=== PATIENT | female | born 1955 | race Caucasian/White ===

== ENCOUNTER 2020-10-22 14:42 | Inpatient (IN) ==
[2020-10-22] MEDS ORDERED: SODIUM CHLORIDE 0.9% 1000ML 1,000 ML IV ONE ×3 (15:46→20:01)
--- NOTE | 2020-10-22 16:16 | Emergency Department Note ---
Impression & Plan Cellulitis, Acidosis, lactic ED Provider Note NAME: GLEN ALFONSO AGE: 65 SEX: F : 1955 ARRIVES VIA: Walk-In INFORMANT: Patient, the patient significant other ED PROVIDER(S): Onesimo Pierce DO CHIEF COMPLAINT: Weakness HPI: The patient is a 65-year-old female who presented to the emergency department with her significant other for generalized weakness. The patient has a history of MS for many years. She has been on Biologics over the course the last few years. Her last dose was in September of this year. She does follow with her primary neurologist very closely. She is also had problems with trigeminal neuralgia. The patient has been traveling recently and on her most recent return home she started to have worsening symptoms with her MS. Her significant other did start her on a course of steroids which seemed to help over the last a few days but the patient has very significant breakdown especially on her buttocks and has had worsening symptoms of MS. The patient does not have a fever. She denies having any chest pain or difficulty breathing. She denies having any exposure to COVID-19 as far she knows. She notices no new lower extremity swelling. She has had no falls or headaches. The patient did not see her family doctor for the symptoms. ROS: See above HPI for pertinent positives & negatives. A total of 10 systems reviewed and were otherwise negative. PAST MEDICAL HISTORY: See Below PAST SURGICAL HISTORY: See Below FAMILY HISTORY: See Below SOCIAL HISTORY: See Below HOME MEDICATIONS: See Below ALLERGIES: See Below VITALS: See Below PHYSICAL EXAMINATION: GENERAL: Patient is awake and alert. The patient is somewhat anxious appearing. EYES: The conjunctivae are clear. The pupils are round and reactive. EARS, NOSE, MOUTH AND THROAT: The nose is without any evidence of any deformity. NECK: The neck is nontender and supple. RESPIRATORY: Normal respiratory effort is noted there is no evidence of wheezing rhonchi or rales CARDIOVASCULAR: Tachycardic rate with regular rhythm was noted. There was no definite murmur. GASTROINTESTINAL: The abdomen is soft. Abdomen is nontender. MUSCULOSKELETAL/EXTREMITIES: There is no evidence of gross deformity full range of motion is noted in the hips and shoulders. SKIN: Trace pedal edema was noted bilaterally. There was significant erythema and skin breakdown on the buttocks. This is consistent with a very significant pressure ulcer of the sacrum. Some bleeding was noted. NEUROLOGIC: Patient is awake alert and oriented x3. Strength was diminished in both lower extremities right greater than left. MEDICAL DECISION MAKING: The patient is a 65-year-old female who presented to the emergency department for an evaluation of generalized weakness. The patient has a history of MS and her condition has been worsening especially over the last few weeks. She does receive a biologic and her last dose was in September of this year. She also was started on a course of steroids by her significant other. Symptoms have slowly been getting better but she was noted to have erythema over her buttocks from immobility. This is progressed significantly and the patient was found to have very significant signs of cellulitis and skin breakdown. The patient was found of a very elevated white blood cell count with elevated lactic acid. She was treated with IV fluids and IV antibiotics. She was reevaluated multiple times. I discussed the patient's laboratory and radiographic studies with her and her significant other. I also discussed her case with the on-call [facility] hospitalist. They have agreed to evaluate the patient in the emergency department for further management and disposition. Triage Nursing notes reviewed. Prior medical records reviewed Vital Signs: reviewed and remarkable for tachycardia. Differential diagnosis: Infection, dehydration, metabolic abnormality, hypo/hyperglycemia, electrolyte disturbance, anemia, hypoxia, cardiac sources, intracerebral event, toxicologic, neurologic, as well as other pathologies. ER treatment provided: See below Diagnostics interpreted by me: ECG: EKG was obtained in the emergency department. My interpretation is sinus tachycardia 108 bpm. There was no ectopy. There was no acute ST segment abnormalities noted. No previous tracing was available. Cardiac Monitoring: An order was placed for continuous cardiac monitoring. The monitor shows a rate of 125 bpm with sinus tachycardia rhythm. Laboratory studies: As stated above and show below. Imaging studies: See below Consultation(s): I discussed this case with Dr Estrella. He will evaluate the patient in the ED. Past Med/Surg History Medical History Degenerative cervical spinal stenosis Encounter for routine gynecological examination with Papanicolaou smear of cervix Fatigue Lumbosacral spondylosis without myelopathy Multiple sclerosis Osteoarthritis of lumbar spine Trigeminal neuralgia Verrucous skin lesion Vitamin D deficiency Social History Smoking Status: Never smoker Tobacco Type: Cigarettes Feels Safe at Home: Yes Allergies Allergies Allergy/AdvReac Type Severity Reaction Status Date / Time No Known Allergies Allergy Mild Verified 08/19/20 12:30 Home Meds Home Medications Medication Instructions Recorded Confirmed alendronate 70 mg tablet (Fosamax) 70 mg PO Q7D tab 08/19/20 10/22/20 cholecalciferol (vitamin D3) 125 125 mcg PO DAILY 08/19/20 10/22/20 mcg (5,000 unit) capsule meloxicam 15 mg tablet 15 mg PO DAILY 08/19/20 10/22/20 multivitamin (Multiple Vitamins) 1 tab PO DAILY 08/19/20 10/22/20 oxybutynin chloride 10 mg 10 mg PO DAILY 08/19/20 10/22/20 tablet,extended release 24 hr oxcarbazepine 300 mg tablet 600 mg PO BID tab 10/01/20 10/22/20 prednisone 10 mg tablet 0 mg PO UD 10/22/20 10/22/20 Previous Rx's Medication Instructions Recorded baclofen 10 mg tablet 10 mg PO BID PRN #180 tab 08/19/20 ocrelizumab 30 mg/mL intravenous 600 mg IV .COMPLEX #20 ml 09/10/20 solution (Ocrevus) gabapentin 300 mg capsule 300 mg PO .COMPLEX #60 cap 10/02/20 Results & Data (ED) Vital Signs Vital Signs - 24 hr 10/22/20 14:52 10/22/20 16:46 Temperature 37.4 C Temperature Source Skin Pulse Rate 100 H 108 H Pulse Rhythm Regular Regular Pulse Strength Normal Respiratory Rate 20 20 Respiratory Effort / Characteristics Non-Labored Spontaneous Respiratory Depth Normal Respiratory Pattern Regular Blood Pressure 137/61 Blood Pressure Mean 86 Pulse Oximetry 96 98 Oxygen Delivery Method Room Air Room Air Sepsis Recent Fever Within 48 Hours No Sepsis New/Unexplained Change in Mental Status N/A Sepsis Action Taken by Nursing No Action Required Home Medications Current Medication List: was personally reviewed by me Laboratory Data Attestation: I reviewed the patient's lab results. Result diagrams: 10/22/20 16:15 10/22/20 16:15 Lab Results 10/22/20 10/22/20 10/22/20 Range/Units 15:57 15:57 16:15 WBC 28.82 H (4.8-10.8) K/uL RBC 4.26 (4.2-5.4) M/uL Hgb 13.9 (12.0-16.0) g/dL Hct 39.9 (37-47) % MCV 93.7 (80-100) fL MCH 32.6 (25-34) pg MCHC 34.8 (32-36) g/dL RDW Std Deviation 42.6 (36.4-46.3) fL RDW Coeff of Ibrahima 12.5 (11.5-14.5) % Plt Count 404 H (130-400) K/uL MPV 9.8 (7.4-10.4) fL Immature Gran % (Auto) 0.5 % Neut % (Auto) 88.9 % Lymph % (Auto) 2.4 % [place] % (Auto) 8.2 % Eos % (Auto) 0.0 % Baso % (Auto) 0.0 % Neut # (Auto) 25.65 H (1.4-6.5) K/uL Lymph # (Auto) 0.68 L (1.2-3.4) K/uL [place] # (Auto) 2.35 H (0.11-0.59) K/uL Eos # (Auto) 0.00 (0-0.5) K/uL Baso # (Auto) 0.01 (0-0.2) K/uL Immature Gran # (Auto) 0.13 H (0.00-0.02) K/uL PT (9.0-12.0) Seconds INR (0.9-1.1) APTT (21.0-31.0) Seconds PTT Ratio Sodium (136-145) mmol/L Potassium (3.5-5.1) mmol/L Chloride (98-107) mmol/L Carbon Dioxide (21-32) mmol/L Anion Gap (3-11) BUN (7-18) mg/dl Creatinine (0.6-1.2) mg/dl Est Cr Clr Drug Dosing ml/min Est GFR ( Amer) ml/min Est GFR (Non-Af Amer) ml/min BUN/Creatinine Ratio (10-20) Glucose (70-99) mg/dl Lactate (0.4-2.0) mmol/L Calcium (8.5-10.1) mg/dl Magnesium (1.8-2.4) mg/dl Total Bilirubin (0.2-1) mg/dl AST (15-37) U/L ALT (12-78) U/L Alkaline Phosphatase (45-117) U/L Total Creatine Kinase (26-192) U/L Troponin I (0-0.045) ng/ml Total Protein (6.4-8.2) gm/dl Albumin (3.4-5.0) gm/dl Globulin (2.5-4.0) gm/dl Albumin/Globulin Ratio (0.9-2) TSH (0.300-4.500) uIu/ml COVID-19 Eval Order Covid19 at [facility] SARS-CoV-2 (PCR) NEGATIVE (Negative) 10/22/20 10/22/20 10/22/20 Range/Units 16:15 16:15 16:15 WBC (4.8-10.8) K/uL RBC (4.2-5.4) M/uL Hgb (12.0-16.0) g/dL Hct (37-47) % MCV (80-100) fL MCH (25-34) pg MCHC (32-36) g/dL RDW Std Deviation (36.4-46.3) fL RDW Coeff of Ibrahima (11.5-14.5) % Plt Count (130-400) K/uL MPV (7.4-10.4) fL Immature Gran % (Auto) % Neut % (Auto) % Lymph % (Auto) % [place] % (Auto) % Eos % (Auto) % Baso % (Auto) % Neut # (Auto) (1.4-6.5) K/uL Lymph # (Auto) (1.2-3.4) K/uL [place] # (Auto) (0.11-0.59) K/uL Eos # (Auto) (0-0.5) K/uL Baso # (Auto) (0-0.2) K/uL Immature Gran # (Auto) (0.00-0.02) K/uL PT 10.6 (9.0-12.0) Seconds INR 1.0 (0.9-1.1) APTT 28.6 (21.0-31.0) Seconds PTT Ratio 1.1 Sodium 131 L (136-145) mmol/L Potassium 4.3 (3.5-5.1) mmol/L Chloride 98 (98-107) mmol/L Carbon Dioxide 28 (21-32) mmol/L Anion Gap 5.0 (3-11) BUN 16 (7-18) mg/dl Creatinine 0.59 L (0.6-1.2) mg/dl Est Cr Clr Drug Dosing 79.9 ml/min Est GFR ( Amer) 109.9 ml/min Est GFR (Non-Af Amer) 94.8 ml/min BUN/Creatinine Ratio 27.3 H (10-20) Glucose 143 H (70-99) mg/dl Lactate 3.0 H* (0.4-2.0) mmol/L Calcium 9.0 (8.5-10.1) mg/dl Magnesium 2.3 (1.8-2.4) mg/dl Total Bilirubin 0.4 (0.2-1) mg/dl AST 49 H (15-37) U/L ALT 83 H (12-78) U/L Alkaline Phosphatase 175 H (45-117) U/L Total Creatine Kinase 135 (26-192) U/L Troponin I < 0.015 (0-0.045) ng/ml Total Protein 7.8 (6.4-8.2) gm/dl Albumin 3.2 L (3.4-5.0) gm/dl Globulin 4.6 H (2.5-4.0) gm/dl Albumin/Globulin Ratio 0.7 L (0.9-2) TSH 0.486 (0.300-4.500) uIu/ml COVID-19 Eval Order SARS-CoV-2 (PCR) (Negative) 10/22/20 Range/Units 18:45 WBC (4.8-10.8) K/uL RBC (4.2-5.4) M/uL Hgb (12.0-16.0) g/dL Hct (37-47) % MCV (80-100) fL MCH (25-34) pg MCHC (32-36) g/dL RDW Std Deviation (36.4-46.3) fL RDW Coeff of Ibrahima (11.5-14.5) % Plt Count (130-400) K/uL MPV (7.4-10.4) fL Immature Gran % (Auto) % Neut % (Auto) % Lymph % (Auto) % [place] % (Auto) % Eos % (Auto) % Baso % (Auto) % Neut # (Auto) (1.4-6.5) K/uL Lymph # (Auto) (1.2-3.4) K/uL [place] # (Auto) (0.11-0.59) K/uL Eos # (Auto) (0-0.5) K/uL Baso # (Auto) (0-0.2) K/uL Immature Gran # (Auto) (0.00-0.02) K/uL PT (9.0-12.0) Seconds INR (0.9-1.1) APTT (21.0-31.0) Seconds PTT Ratio Sodium (136-145) mmol/L Potassium (3.5-5.1) mmol/L Chloride (98-107) mmol/L Carbon Dioxide (21-32) mmol/L Anion Gap (3-11) BUN (7-18) mg/dl Creatinine (0.6-1.2) mg/dl Est Cr Clr Drug Dosing ml/min Est GFR ( Amer) ml/min Est GFR (Non-Af Amer) ml/min BUN/Creatinine Ratio (10-20) Glucose (70-99) mg/dl Lactate 2.9 H* (0.4-2.0) mmol/L Calcium (8.5-10.1) mg/dl Magnesium (1.8-2.4) mg/dl Total Bilirubin (0.2-1) mg/dl AST (15-37) U/L ALT (12-78) U/L Alkaline Phosphatase (45-117) U/L Total Creatine Kinase (26-192) U/L Troponin I (0-0.045) ng/ml Total Protein (6.4-8.2) gm/dl Albumin (3.4-5.0) gm/dl Globulin (2.5-4.0) gm/dl Albumin/Globulin Ratio (0.9-2) TSH (0.300-4.500) uIu/ml COVID-19 Eval Order SARS-CoV-2 (PCR) (Negative) Administered Medications Discontinued Medications Acetaminophen (Acetaminophen 1000 Mg/100 Ml Iv) Confirm Administered Dose 1,000 mg IV .STK-MED ONE Stop: 10/22/20 18:16 Last Admin: 10/22/20 18:34 Dose: 1,000 mg Documented by: [id number] Sodium Chloride (Nss 1000ml) 1,000 mls @ 999 mls/hr IV .Q1H1M ONE Stop: 10/22/20 16:46 Last Admin: 10/22/20 16:35 Dose: 999 mls/hr Documented by: [id number] Sodium Chloride (Nss 1000ml) 1,000 mls @ 999 mls/hr IV .Q1H1M ONE Stop: 10/22/20 17:04 Last Admin: 10/22/20 16:37 Dose: 999 mls/hr Documented by: [id number] Ampicillin Sodium/Sulbactam Sodium 3,000 mg/ Sodium Chloride 108 mls @ 200 mls/hr IV NOW STA; Protocol Stop: 10/22/20 17:39 Last Admin: 10/22/20 18:34 Dose: 200 mls/hr Documented by: [id number] Imaging Data Radiologist's Impression: Chest X-Ray 10/22/20 15:46 XR chest 1V portable CLINICAL HISTORY: weakness COMPARISON STUDY: No previous studies for comparison. FINDINGS: Lung volumes are normal. Lungs are clear. There is no pneumothorax or pleural effusion. Cardiac size is normal. Mediastinal contours are normal. There is no evidence for pulmonary edema. IMPRESSION: No acute cardiopulmonary findings. ACT 112: Negative or not required by law. Electronically signed by: Andriy Chapin M.D. 10/22/2020 4:20 PM Discharge Plan Visit Data Chief Complaint: Illness Stated Complaint: PROGRESSIVE MS,INFECTED DICULITI ED Provider: Onesimo Pierce Discharge Problem: Cellulitis, Acidosis, lactic Patient Disposition: Being Evaluated by Hospitalist Condition: Good Forms Stand Alone Forms: My QA on Request Prescriptions Prescriptions: No Action Ocrevus 30 mg/mL solution 600 mg IV .COMPLEX Qty: 20 RF: 1 oxcarbazepine 300 mg tablet 600 mg PO BID RF: 0 gabapentin 300 mg capsule 300 mg PO .COMPLEX Qty: 60 RF: 0 alendronate [Fosamax] 70 mg tablet 70 mg PO Q7D RF: 0 cholecalciferol (vitamin D3) 125 mcg (5,000 unit) capsule 125 mcg PO DAILY RF: 0 meloxicam 15 mg tablet 15 mg PO DAILY RF: 0 oxybutynin chloride 10 mg tablet extended release 24hr 10 mg PO DAILY RF: 0 multivitamin [Multiple Vitamins] Tablet 1 tab PO DAILY RF: 0 baclofen 10 mg tablet 10 mg PO BID PRN (Reason: muscle spasm) Qty: 180 RF: 3 prednisone 10 mg tablet 0 mg PO UD RF: 0 Referrals Referrals: Reji Brar MD [Primary Care Provider] -
--- NOTE | 2020-10-22 16:21 | XRay Report ---
XR chest 1V portable CLINICAL HISTORY: weakness COMPARISON STUDY: No previous studies for comparison. FINDINGS: Lung volumes are normal. Lungs are clear. There is no pneumothorax or pleural effusion. Car diac size is normal. Mediastinal contours are normal. There is no evidence for pulmonary edema. IMPRESSION: No acute cardiopulmonary findings. ACT 112: Negative or not required by law. Electronically signed by: Andriy Chapin M.D. 10/22/2020 4:20 PM
[2020-10-22 16:43] LABS: Hematocrit (blood only) 39.9 % (37-47); Hemoglobin 13.9 g/dL (12.0-16.0); Mean Corpuscular Hemoglobin 32.6 pg (25-34); Mean Corpuscular Hgb Conc 34.8 g/dL (32-36); Mean Corpuscular Volume 93.7 fL (80-100); Mean Platelet Volume 9.8 fL (7.4-10.4); Platelet Count 404 K/uL (130-400); RDW Coefficient of Variation 12.5 % (11.5-14.5); RDW Standard Deviation 42.6 fL (36.4-46.3); Red Blood Count 4.26 M/uL (4.2-5.4); White Blood Count 28.82 K/uL (4.8-10.8)
[2020-10-22 17:00] LABS: Basophils # (auto) 0.01 K/uL (0-0.2); Immature Granulocytes # (auto) 0.13 K/uL (0.00-0.02); Immature Granulocytes % (auto) 0.5 %; Lymphocytes # (auto) 0.68 K/uL (1.2-3.4); Lymphocytes % (auto) 2.4 %; Monocytes # (auto) 2.35 K/uL (0.11-0.59); Monocytes % (auto) 8.2 %; Neutrophils # (auto) 25.65 K/uL (1.4-6.5); Neutrophils % (auto) 88.9 %
[2020-10-22 17:02] LABS: Partial Thromboplastin Ratio 1.1; Partial Thromboplastin Time 28.6 Seconds (21.0-31.0); Prothrombin Time 10.6 Seconds (9.0-12.0)
[2020-10-22] MEDS ORDERED: VANCOMYCIN HCL 1,250 MG in SODIUM CHLORIDE 0.9% 500 ML IV ONE (17:07)
[2020-10-22] MEDS ORDERED: AMPICILLIN/SULBACTAM SOD 3,000 MG in 0.9 % SODIUM CHLORIDE 100 ML IV STA (17:07)
[2020-10-22] MEDS ORDERED: VANCOMYCIN CONSULT ACTIVE PRN (17:07)
[2020-10-22 17:10] LABS: Alanine Aminotransferase 83 U/L (12-78); Albumin Level 3.2 gm/dl (3.4-5.0); Aspartate Aminotransferase 49 U/L (15-37); BUN Creatinine Ratio 27.3 (10-20); Blood Urea Nitrogen 16 mg/dl (7-18); Carbon Dioxide 28 mmol/L (21-32); Chloride 98 mmol/L (98-107); Creatinine Clr Calc Pharmacy 79.9 ml/min; Est GFR (African American) 109.9 ml/min; Est GFR (Non-African American) 94.8 ml/min; Glucose 143 mg/dl (70-99); Magnesium 2.3 mg/dl (1.8-2.4); Potassium 4.3 mmol/L (3.5-5.1); Sodium 131 mmol/L (136-145)
[2020-10-22 17:21] LABS: Albumin Globulin Ratio 0.7 (0.9-2); Alkaline Phosphatase 175 U/L (45-117); Bilirubin,Total 0.4 mg/dl (0.2-1); Creatine Kinase 135 U/L (26-192); Globulin 4.6 gm/dl (2.5-4.0); Thyroid Stimulating Hormone 0.486 uIu/ml (0.300-4.500); Total Protein 7.8 gm/dl (6.4-8.2); Troponin I < 0.015 ng/ml (0-0.045)
--- NOTE | 2020-10-22 18:14 | History & Physical Report ---
Date of Service October 22, 2020 Assessment & Plan (1) Multiple sclerosis: Plan: I suspect the patient's main problem is worsening multiple sclerosis, possibly with acute flare Plan to admit to general medical bed Start IV Solu-Medrol 1 g daily for the next 5days PT/OT/speech therapy We will ask neurology for further recommendations. Patient sees when she is in this area (2) Trigeminal neuralgia: Plan: Patient is typically takes Trileptal for this, has just been started on gabapentin as well We will continue these medications as able (3) Sacral decubitus ulcer: Plan: Superficially, I do not think the wounds are infected but definitely require wound care to this area Patient is given vancomycin in the emergency room We will order CT scan of the abdomen pelvis to ensure that there is not a deeper infection or abscess not seen visual inspection Hold antibiotic treatment for now Plan: Will need case management to evaluate prior to discharge for home needs versus possible placement History of Present Illness Chief Complaint: Weakness Primary Care Provider: Reji Brar MD This is a 65-year-old female with past medical history of advanced MS and trigeminal neuralgia that presents with generalized weakness. Patient is currently by her and daughter. All are good historians. The patient does seem to be a little bit confused. The tells me that they tend to travel between [place] and this area for the [place]. They have noted that over the past 6 weeks while living in this area that the patient's condition has had a significant decline. They did attribute this partially to a flare of her left-sided trigeminal neuralgia although this is completely resolved unexpectedly over the past 2 days. They noticed that she has become slightly more confused. She is much more weak and is no longer able to transfer from her wheelchair to the toilet nor she able to care for self. She does have some mild tremor and difficulty holding utensils and feeding herself. She has had diminished p.o. intake. She has not had any fever or chills nor she has had any nausea, diarrhea, vomiting, constipation. They also concerned about her sacral area which is developed some skin breakdown and surrounding erythema. They are concerned that this may be infected. There at the point that the they feel that they can no longer care for the patient independently and may require some nursing help at home versus possible placement at some point. Over the past 2 days, the has started the patient on oral steroids which has helped her MS flares in the past. They have been using prednisone 60mg daily. Patient herself does not seem to be in any significant distress but she does seem to be confused and has difficulty answering questions correctly. She does not appear to be in any cardiopulmonary distress. Allergies Allergy/AdvReac Type Severity Reaction Status Date / Time No Known Allergies Allergy Mild Verified 08/19/20 12:30 Home Medications Medication Instructions Recorded Confirmed Type alendronate 70 mg tablet (Fosamax) 70 mg PO Q7D tab 08/19/20 08/19/20 History baclofen 10 mg tablet 10 mg PO BID PRN #180 tab 08/19/20 08/19/20 Rx cholecalciferol (vitamin D3) 125 125 mcg PO DAILY 08/19/20 08/19/20 History mcg (5,000 unit) capsule meloxicam 15 mg tablet 15 mg PO DAILY 08/19/20 08/19/20 History multivitamin (Multiple Vitamins) 1 tab PO DAILY 08/19/20 08/19/20 History oxybutynin chloride 10 mg 10 mg PO DAILY 08/19/20 08/19/20 History tablet,extended release 24 hr ocrelizumab 30 mg/mL intravenous 600 mg IV .COMPLEX #20 ml 09/10/20 Rx solution (Ocrevus) oxcarbazepine 300 mg tablet 600 mg PO BID tab 10/01/20 History gabapentin 300 mg capsule 300 mg PO .COMPLEX #60 cap 10/02/20 Rx Past Med/Surg History Medical History Degenerative cervical spinal stenosis Encounter for routine gynecological examination with Papanicolaou smear of cervix Fatigue Lumbosacral spondylosis without myelopathy Multiple sclerosis Osteoarthritis of lumbar spine Trigeminal neuralgia Verrucous skin lesion Vitamin D deficiency Social History Smoking Status: Never smoker Tobacco Type: Cigarettes Feels Safe at Home: Yes Review of Systems Review of Systems: Patient is unable to give review of systems secondary to mental status. Otherwise as noted above Physical Exam Constitutional: + altered mental status and + frail appearing; no acute distress Neck: trachea midline, no thyromegaly Respiratory: normal respiratory effort Auscultation: + diminished lung sounds; no crackles, no rales, no rhonchi and no wheezes Cardiovascular: Rate/Rhythm: regular rhythm and + tachycardic Heart Sounds: normal S1 and normal S2 Gastrointestinal (Abdomen): Inspection/Auscultation: abdomen normal to inspection Percussion/Palpation: abdomen soft; abdomen nontender, no guarding, abdomen not rigid and no hepatosplenomegaly Skin: no rashes, warm and dry Sacrum has 2 areas of mild erythema that are covered. Just posterior to the anal verge, there are 2 areas of breakdown to the subcutaneous tissue with an erythematous area throughout almost the buttocks. There is no significant drainage. There is a small eschar. Results & Data Results & Data ([facility]) Vital Signs (Past 12 Hours) Vital Signs Temp Pulse Resp BP Pulse Ox 10/22/20 16:46 108 H 20 98 10/22/20 14:52 37.4 C 100 H 20 137/61 96 Laboratory Results Laboratory Results WBC 28.82 K/uL (4.8-10.8) H 10/22/20 16:15 RBC 4.26 M/uL (4.2-5.4) 10/22/20 16:15 Hgb 13.9 g/dL (12.0-16.0) 10/22/20 16:15 Hct 39.9 % (37-47) 10/22/20 16:15 MCV 93.7 fL (80-100) 10/22/20 16:15 MCH 32.6 pg (25-34) 10/22/20 16:15 MCHC 34.8 g/dL (32-36) 10/22/20 16:15 RDW Std Deviation 42.6 fL (36.4-46.3) 10/22/20 16:15 RDW Coeff of Ibrahima 12.5 % (11.5-14.5) 10/22/20 16:15 Plt Count 404 K/uL (130-400) H 10/22/20 16:15 MPV 9.8 fL (7.4-10.4) 10/22/20 16:15 Immature Gran % (Auto) 0.5 % 10/22/20 16:15 Neut % (Auto) 88.9 % 10/22/20 16:15 Lymph % (Auto) 2.4 % 10/22/20 16:15 [place] % (Auto) 8.2 % 10/22/20 16:15 Eos % (Auto) 0.0 % 10/22/20 16:15 Baso % (Auto) 0.0 % 10/22/20 16:15 Neut # (Auto) 25.65 K/uL (1.4-6.5) H 10/22/20 16:15 Lymph # (Auto) 0.68 K/uL (1.2-3.4) L 10/22/20 16:15 [place] # (Auto) 2.35 K/uL (0.11-0.59) H 10/22/20 16:15 Eos # (Auto) 0.00 K/uL (0-0.5) 10/22/20 16:15 Baso # (Auto) 0.01 K/uL (0-0.2) 10/22/20 16:15 Immature Gran # (Auto) 0.13 K/uL (0.00-0.02) H 10/22/20 16:15 PT 10.6 Seconds (9.0-12.0) 10/22/20 16:15 INR 1.0 (0.9-1.1) 10/22/20 16:15 APTT 28.6 Seconds (21.0-31.0) 10/22/20 16:15 PTT Ratio 1.1 10/22/20 16:15 Sodium 131 mmol/L (136-145) L 10/22/20 16:15 Potassium 4.3 mmol/L (3.5-5.1) 10/22/20 16:15 Chloride 98 mmol/L (98-107) 10/22/20 16:15 Carbon Dioxide 28 mmol/L (21-32) 10/22/20 16:15 Anion Gap 5.0 (3-11) 10/22/20 16:15 BUN 16 mg/dl (7-18) 10/22/20 16:15 Creatinine 0.59 mg/dl (0.6-1.2) L 10/22/20 16:15 Est Cr Clr Drug Dosing 79.9 ml/min 10/22/20 16:15 Est GFR ( Amer) 109.9 ml/min 10/22/20 16:15 Est GFR (Non-Af Amer) 94.8 ml/min 10/22/20 16:15 BUN/Creatinine Ratio 27.3 (10-20) H 10/22/20 16:15 Glucose 143 mg/dl (70-99) H 10/22/20 16:15 Lactate 3.0 mmol/L (0.4-2.0) H* 10/22/20 16:15 Calcium 9.0 mg/dl (8.5-10.1) 10/22/20 16:15 Magnesium 2.3 mg/dl (1.8-2.4) 10/22/20 16:15 Total Bilirubin 0.4 mg/dl (0.2-1) 10/22/20 16:15 AST 49 U/L (15-37) H 10/22/20 16:15 ALT 83 U/L (12-78) H 10/22/20 16:15 Alkaline Phosphatase 175 U/L (45-117) H 10/22/20 16:15 Total Creatine Kinase 135 U/L (26-192) 10/22/20 16:15 Troponin I < 0.015 ng/ml (0-0.045) 10/22/20 16:15 Total Protein 7.8 gm/dl (6.4-8.2) 10/22/20 16:15 Albumin 3.2 gm/dl (3.4-5.0) L 10/22/20 16:15 Globulin 4.6 gm/dl (2.5-4.0) H 10/22/20 16:15 Albumin/Globulin Ratio 0.7 (0.9-2) L 10/22/20 16:15 TSH 0.486 uIu/ml (0.300-4.500) 10/22/20 16:15 COVID-19 Eval Order Covid19 at [facility] 10/22/20 15:57 Impressions Chest X-Ray 10/22/20 15:46 XR chest 1V portable CLINICAL HISTORY: weakness COMPARISON STUDY: No previous studies for comparison. FINDINGS: Lung volumes are normal. Lungs are clear. There is no pneumothorax or pleural effusion. Cardiac size is normal. Mediastinal contours are normal. There is no evidence for pulmonary edema. IMPRESSION: No acute cardiopulmonary findings. ACT 112: Negative or not required by law. Electronically signed by: Andriy Chapin M.D. 10/22/2020 4:20 PM PG Care Time/CCT Total # of Minutes Spent Total Time Spent with Patient: Total time spent is greater than 50% in coordination of care (as documented) at patient's floor/unit and/or counseling patient: Coding Level of Care Code 44590 Initial Inpt Care Lvl 3 Diagnoses Multiple sclerosis G35 Trigeminal neuralgia G50.0 Sacral decubitus ulcer L89.159
[2020-10-22] MEDS ORDERED: ACETAMINOPHEN 1000 MG/100 ML IV IV ONE (18:15)
[2020-10-22 19:52] LABS: Appearance Urine Cloudy (Clear); Bacteria Urine Automated 4+ (Negative); Bilirubin Urine Negative (Negative); Blood Urine 2+ (Negative); Color Urine Yellow; Epithelial Cell Urine Auto 0-5 /lpf (0-5); Glucose Urine UA 3+ (Negative); Ketones Urine Negative (Negative); Leukocyte Esterase Urine 2+ (Negative); Nitrite Urine Positive (Negative); Protein Urine 1+ (Negative); Specific Gravity Urine 1.018 (1.000-1.030); Urobilinogen Urine Negative (Negative); WBC Urine Automated >30 /hpf (0-5)
[2020-10-22] MEDS ORDERED: ACETAMINOPHEN 500 MG TAB PO STA (20:01)
[2020-10-22] MEDS ORDERED: OPTIRAY 320 100ml IV ONE (21:02)
[2020-10-22] MEDS ORDERED: ACETAMINOPHEN 325 MG TAB PO PRN (22:40)
[2020-10-23] MEDS: SODIUM CHLORIDE 0.9% 1000ML 1,000 ML IV SCH ×3 (00:53→21:44)
[2020-10-23] MEDS: cefTRIAXone SODIUM 1,000 MG in DEXTROSE 5% 50 ML IV SCH ×2 (00:54→21:44)
[2020-10-23] MEDS: ENOXAPARIN INJ 40 MG/0.4 ML SYR SQ SCH ×2 (01:45→21:47)
[2020-10-23] MEDS: OXcarbazepine 150 MG TABLET PO SCH ×3 (01:45→21:47)
[2020-10-23] MEDS: methylPREDNISolone 1,000 MG in DEXTROSE 5% 250 ML IV SCH ×2 (01:46→15:23)
[2020-10-23 07:42] LABS: Hemoglobin 10.9 g/dL (12.0-16.0); Mean Corpuscular Hemoglobin 31.2 pg (25-34); Mean Corpuscular Volume 94.6 fL (80-100); Mean Platelet Volume 10.3 fL (7.4-10.4); Platelet Count 368 K/uL (130-400); RDW Coefficient of Variation 12.9 % (11.5-14.5); RDW Standard Deviation 44.2 fL (36.4-46.3); Red Blood Count 3.49 M/uL (4.2-5.4); White Blood Count 26.66 K/uL (4.8-10.8)
[2020-10-23 08:00] LABS: Basophils # (auto) 0.01 K/uL (0-0.2); Immature Granulocytes % (auto) 0.4 %; Lymphocytes # (auto) 0.48 K/uL (1.2-3.4); Lymphocytes % (auto) 1.8 %; Monocytes # (auto) 0.68 K/uL (0.11-0.59); Monocytes % (auto) 2.6 %; Neutrophils # (auto) 25.39 K/uL (1.4-6.5); Neutrophils % (auto) 95.2 %
[2020-10-23 08:11] LABS: BUN Creatinine Ratio 22.7 (10-20); Calcium 7.4 mg/dl (8.5-10.1); Est GFR (African American) 120.2 ml/min; Est GFR (Non-African American) 103.7 ml/min; Potassium 3.6 mmol/L (3.5-5.1)
[2020-10-23] MEDS: OXYBUTYNIN CHLORIDE XL 5 MG TABCR PO SCH (08:34)
--- NOTE | 2020-10-23 09:07 | Neurology Consultation ---
Date of Consultation October 23, 2020 Assessment & Plan (1) Multiple sclerosis: Secondary progressive multiple sclerosis. Probable pseudorelapse/exacerbation in the context of sacral decubitus ulcer and probable urinary tract infection. Patient has had multiple sclerosis for several decades and is in a secondary progressive phase, the likelihood of a true relapse is actually low. However, corticosteroids may still be helpful to improve her symptoms and she may continue with IV Solu-Medrol 1 g/day, but would typically recommend a 3-day protocol, followed by a Medrol Dosepak taper. Would continue with intravenous antibiotics for suspected infection. If patient's weakness does not improve over the next 24 hours would recommend obtaining an up-to-date contrast-enhanced MRI of the brain (MS protocol) and contrast-enhanced MRI of the cervical spine. May continue with oxcarbazepine for trigeminal neuralgia. Baclofen and gabapentin have also been prescribed as adjunctive medications for this issue and can be restarted at the discretion of the hospitalist physician. Patient's last Ocrevus infusion was in September, she will not be due for her next infusion until March. I discussed this patient's management with Dr. Lloyd, her regular neurologist, as well. Please contact me if I may be of further assistance. History of Present Illness Reason for Consultation: "MS flare" Requesting Physician: Gennaro Estrella DO Attending Physician: Ignacio Abdi MD History of Present Illness The patient is a 65-year-old female with a history of multiple sclerosis diagnosed sometime in her 20s. She recalls having some difficulty with right eye vision at that time, probably optic neuritis. Does report some residual difficulty with central vision. Patient has been following with Dr. Lloyd as well as a neurologist in [place], Dr. Kedar Sheriff. She has been on Ocrevus for her MS for about the past 20 months and does indicate this medication has been modestly helpful in reducing some of her sensory symptoms. Her last brain MRI was completed in [facility] and suggested severe demyelinating disease with diffuse periventricular, subcortical, brainstem, and posterior fossa plaques. No abnormal postcontrast enhancement at that time. The study also revealed MS related atrophy. This patient's MS has been characterized by slow clinical deterioration over many years. She exhibits mild difficulty with cognitive processing speed and verbal fluency. She endorses symptoms of neurogenic bladder characterized by need for frequent urination for which she is prescribed oxybutynin. She has had intermittent bothersome trigeminal neuralgia although this issue has been in remission recently. She is prescribed oxcarbazepine for this issue. She has considerable gait/ambulatory dysfunction, has been relying on a motorized chair for about the past year but has been able to make limited transfers with assistance. She typically spends part of the year in [facility], and in the warmer summer months, locally in [facility]. 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 The patient last saw Adenike Escamilla and Dr. Lloyd in neurology clinic on August 19, 2020. Her MS has been in a secondary progressive phase for many years. She has been tolerating Ocrevus infusions well. She has been complaining of mild to moderate leg cramping and spasms and was given a prescription for baclofen at that time. The patient presented to the [facility] emergency department yesterday complaining of generalized weakness/worsening MS symptoms with increased difficulty making transfers. The symptoms occur in the context of a decubitus ulcer/cellulitis on her buttocks. She has been taking an oral steroid as well as an outpatient. She has also been diagnosed with a probable urinary tract infection. She is currently receiving IV methylprednisolone for a presumed MS flare as well as Rocephin to treat infection. She was given ampicillin and vancomycin in the emergency department. She continues to complain of a feeling of generalized weakness. She does have a modestly greater degree of weakness affecting the right arm and leg with an associated action tremor for the right hand which she indicates is chronic and related to her MS. She denies any new visual symptoms and again reports that her trigeminal neuralgia is currently in remission. She denies any headache or spinal pain currently. She denies experiencing any significant heat related MS symptoms but spends most of her time indoors in air conditioning. Allergies Allergy/AdvReac Type Severity Reaction Status Date / Time No Known Allergies Allergy Mild Verified 08/19/20 12:30 Home Medications Medication Instructions Recorded Confirmed Type alendronate 70 mg tablet (Fosamax) 70 mg PO Q7D tab 08/19/20 10/22/20 History baclofen 10 mg tablet 10 mg PO BID PRN #180 tab 08/19/20 10/22/20 Rx cholecalciferol (vitamin D3) 125 125 mcg PO DAILY 08/19/20 10/22/20 History mcg (5,000 unit) capsule meloxicam 15 mg tablet 15 mg PO DAILY 08/19/20 10/22/20 History multivitamin (Multiple Vitamins) 1 tab PO DAILY 08/19/20 10/22/20 History oxybutynin chloride 10 mg 10 mg PO DAILY 08/19/20 10/22/20 History tablet,extended release 24 hr ocrelizumab 30 mg/mL intravenous 600 mg IV .COMPLEX #20 ml 09/10/20 10/22/20 Rx solution (Ocrevus) oxcarbazepine 300 mg tablet 600 mg PO BID tab 10/01/20 10/22/20 History gabapentin 300 mg capsule 300 mg PO .COMPLEX #60 cap 10/02/20 10/22/20 Rx prednisone 10 mg tablet 0 mg PO UD 10/22/20 10/22/20 History Patient History Medical History Degenerative cervical spinal stenosis Encounter for routine gynecological examination with Papanicolaou smear of cervix Fatigue Lumbosacral spondylosis without myelopathy Multiple sclerosis Osteoarthritis of lumbar spine Trigeminal neuralgia Verrucous skin lesion Vitamin D deficiency Social History Smoking Status: Never smoker Tobacco Type: Cigarettes Second Hand Exposure: No; Do You Dip or Chew Tobacco: No; Tobacco Cessation Education Requested by Patient: No Hx Alcohol Use: No Hx Substance Use: No Preferred Language: Estonian Communication Ability: Effective Internal Medicine Physician Assistant Required: No Beliefs That Will Affect Care: None Current Living Situation: Spouse Current Living Situation Comment: pt lives at home with . Other Information That Helps Us Care for You: No Feels Safe at Home: Yes Safety Concerns: Feels Safe At This Time Assistive Devices: Glasses and Wheelchair Review of Systems Constitutional: no fever and no chills Eyes: as per Subjective / HPI Ear, Nose, Mouth, Throat: no ear pain and no hearing loss Respiratory: no cough and no dyspnea Cardiovascular: no chest pain and no palpitations Gastrointestinal: no constipation and no diarrhea/loose stools Genitourinary: as per Subjective / HPI Musculoskeletal: as per Subjective / HPI Integumentary: no rash and no lesions Neurologic: as per Subjective / HPI Psychiatric: no behavioral changes, no depression, no abnormal sleep pattern and no anxiety Hematologic / Lymphatic: no easy bruising and no lymphadenopathy Exam (Neuro) Constitutional: well developed and well nourished; no acute distress Eyes: normal visual hernandez by confrontation, PERRL, normal accommodation and EOM intact bilaterally; no fundoscopic abnormality, no nystagmus and no papilledema Cardiovascular: Vessels: normal carotid upstroke; no carotid bruit Neurologic: Oriented to:: Person, Place and Time Memory: Short Term Intact and Remote Intact Attention: Span Intact and Concentration Intact Language: Naming Objects and Repeating Phrases Speech Fluency: Slowed; negative Dysarthria Speech Aphasia: negative Aphasia Fund of Knowledge: Current Events, Past History and Vocabulary Cranial Nerves: Normal II (Visual hernandez full to confrontation, visual acuity normal), III, IV, (Pupils equal round reactive to light and accommodation, eye movements normal), V (Facial sensation intact), VII (There is no facial droop or weakness), VIII (Hearing intact), IX, X (Palate elevates to midline), XI (Shoulder shrug intact) and XII (Tongue protrudes to midline) Motor Strength: Normal Upper Extremities; negative Normal Lower Extremities (Mild to moderate leg weakness, right greater than left) Motor Tone: Normal Lower Extremities and Normal Upper Extremities Muscle Bulk/Involuntary Movements: Action Tremor Laterality: Right; negative Muscle Atrophy Sensation: negative Light Touch Intact, Pain/Temperature Intact, Vibration Intact or Proprioception Intact (Reduced for the feet and ankles bilaterally, right greater than left) Coordination: Finger-Nose Abnormal Laterality: Right and Heel-Campos Abnormal Laterality: Bilateral; negative Dysdiadochokinesia Deep Tendon Reflexes: Rt Triceps: 2+, Lt Triceps: 2+, Rt Biceps: 3+, Lt Biceps: 2+, Rt Brachioradialis: 3+, Lt Brachioradialis: 2+, Rt Patellar: 3+, Lt Patellar: 2+, Rt Ankle: 2+ and Lt Ankle: 2+ Special Tests: Babinski Present (bilateral) Details: Gait cannot be tested Results & Data ([facility]) Vital Signs (Past 12 Hours) Vital Signs Temp Pulse Pulse Pulse Resp BP BP 10/23/20 07:21 37.2 C 96 H 20 10/23/20 07:00 95 H 10/23/20 04:36 37.8 C H 10/23/20 03:05 38.4 C H 118 H 15 10/22/20 22:39 37.4 C 127 H 18 10/22/20 22:20 129 H 10/22/20 22:01 126 H 10/22/20 21:00 37.3 C 130 H 16 127/75 10/22/20 20:46 38.0 C H 10/22/20 20:30 117 H 20 118/55 L BP Pulse Ox 10/23/20 07:21 93/57 L 96 10/23/20 07:00 10/23/20 04:36 10/23/20 03:05 113/63 94 10/22/20 22:39 127/97 98 10/22/20 22:20 10/22/20 22:01 10/22/20 21:00 95 10/22/20 20:46 10/22/20 20:30 100 Laboratory Results WBC 26.66, hemoglobin 10.9, hematocrit 33.0, platelet count 368, sodium 135, potassium 3.6, BUN 10, creatinine 0.45, glucose 213, AST 49, ALT 83, total CK 135, troponin less than 0.015, TSH 0.486 Diagnostic Findings MRI of the brain completed in [facility]. Report is as described in the history of present illness. Electrocardiogram reveals sinus tachycardia, 108 bpm. Coding Level of Care Code 18207 Initial Inpt Care Lvl 3 Diagnoses Multiple sclerosis G35
--- NOTE | 2020-10-23 09:19 | CT Scan Report ---
ABDOMEN AND PELVIS CT WITH IV CONTRAST CT DOSE: 377.64 mGy.cm HISTORY: Patient presents with a sacral decubitus ulcer sacral wound TECHNIQUE: Multiaxial CT images of the abdomen and pelvis were performed following the IV administrat ion of 93 cc of Optiray, A dose lowering technique was utilized adhering to the principles of ALARA. COMPARISON STUDY: None. FINDINGS: Mild dependent bibasilar consolidation with groundglass densities. Superimposed pneumonitis considered less likely. Emphysema. No pneumatosis or pneumoperitoneum. The imaged inferior cardiac c hambers are unremarkable. The spleen, pancreas, adrenal glands and gallbladder are unremarkable. Partially calcified subcapsula r lipoma of the hepatic dome, 3.4 cm. Mild focal fatty infiltration adjacent to the falciform ligamen t of the left hepatic lobe. Patency of the hepatic and portal veins. Unremarkable kidneys with symmet gillian enhancement. No urolith or hydronephrosis. Decompressed urinary bladder with wall thickening and Zhao catheter. Air in the bladder lumen is likely secondary to instrumentation. Unremarkable uterus and adnexa. Moderate atherosclerosis of the aorta without aneurysm. Retroaortic left renal vein. No a denopathy. No bowel obstruction or bowel wall thickening. There is a fluid-filled blind-ending structure adjacen t to the cecum measuring 1.3 cm transversely on image 285. No adjacent inflammatory changes. Moderate subcutaneous edema with skin thickening of the right gluteal tissues with sacral decubitus ulcer. No drainable fluid collection. Degenerative changes of the spine, pelvis and hips. Demineralized appear ance of the bones. No osseous erosions identified. Healed chronic fracture formed in the left inferio r pubic ramus. Mild mid thoracic dextroscoliosis. IMPRESSION: 1. Moderate cellulitis with sacral decubitus ulcer. No abscess or evidence of osteomyelitis. 2. No bowel obstruction or bowel wall thickening. 3. Dependent bibasilar opacities favor atelectasis. Pneumonia or aspiration pneumonitis considered le ss likely. 4. 1.3 cm fluid-filled noninflamed structure adjacent to the cecum is suspicious for a possible mucoc dwayne of the appendix. This could be confirmed with a nonemergent follow-up CT of the abdomen and pelvi s with IV and oral contrast in 1-2 months. ACT 112: Negative or not required by law. The above report was generated using voice recognition software. It may contain grammatical, syntax o r spelling errors. Electronically signed by: Meño Smith M.D. 10/23/2020 9:18 AM
[2020-10-23] MEDS ORDERED: ACETAMINOPHEN 325 MG TAB PO PRN (13:02)
[2020-10-23] MEDS ORDERED: SODIUM CHLORIDE 0.9% 500 ML IV SCH (13:15)
--- NOTE | 2020-10-23 14:46 | Hospitalist Progress Note ---
Date of Service October 23, 2020 Assessment & Plan (1) Weakness: Plan: -Weakness likely multifactorial. Patient with initial presentation of tachycardia and a feverlikely consistent with infectious process. Her white blood cell count was 28.82; however, this is skewed given her steroid therapy prior to presentation. -Urine is grossly infected. Likely responsible for her ongoing weakness -Patient has been started on Rocephin empirically. We will continue this for now. Final antibiotic therapy will be tailored based on culture data. Wound culture/blood cultures pending -Cannot rule out that patient is not having progressive issues with her MS. Has been seen by neurology who does not believe that she is in a flare but agrees with burst steroids (recommending Solu-Medrol 1 g/day X 3 days followed by a Medrol dose taper) -If no improvement within 24 hours of initiating antibiotic regimen, will consider MRI as outlined by neuro--greatly appreciate recommendations. (2) Multiple sclerosis: Plan: -See above -PT/OT/ST consultedappreciate recommendations (3) Trigeminal neuralgia: Plan: -Continue Trileptal and gabapentin as prior to hospitalization (4) Sacral decubitus ulcer: Plan: -I agree with admitting physician that superficially, this does not appear to be actively infected -Wound nurse on boardappreciate recommendations Plan: - Will need case management to evaluate prior to discharge for home needs versus possible placement -Plan of care to be discussed with Dr. Abdi. Further orders as warranted. Admission and Anticipated Discharge Date Admission Date: October 22, 2020 Supervising Physician Co-Signing Physician Notes I supervised Sumi Disla PA-C on this patient. I interviewed and examined the patient independently of her. The plan is as written in her note except for any following changes/exceptions: None Doing much better today. reports she is 95% better compared to admission. Discussed with Dr. Monterroso and Dr. Lloyd. Both agree to defer further steroids aimed at possible MS flare and continue with abx. Follow cultures. Subjective Patient seen on daily rounds today. She is a 65 y/o WF with a PMHx of advanced MS and trigeminal neuralgia. She was hospitalized yesterday for progressive weakness ongoing for 6 months. Patient thought she was having progression/flare of her MS and has been on multiple courses of prednisone (most recently 1 week agocompleted 1 day [employer]). Patient typically nonambulatory but can transfer independently. Over the past several days to weeks, she has been declining rapidly and unable to transfer which prompted her evaluation in the ED. There she was found to be tachycardic at 132 with a temp of 102.38. In addition, she had a white blood cell count of 28.82 (but notably was on steroids as of recent). Her urine was grossly infected as it was nitrite and leukocyte esterase positive. Her Covid test was negative. Chest x-ray showed no acute pathology. CT of the abdomen and pelvis showed no acute pathology. Blood pressure was stable. Upon further questioning, she does admit to subjective fevers and chills over the past several days along with incontinence and urgency (typically able to void independently without need for catheterization and is not usually incontinent). Does not report dysuria, hematuria, or flank pain. Patient was hospitalized and given IV Solu-Medrol for questionable MS flare and is on Rocephin empirically. She has been seen by neurology who is recommending an MRI of the brain if her weakness does not drastically improve in 24 hours. Urine culture and blood cultures have been orderedpending. Currently, patient denies fevers, chills, chest pain, shortness of breath, abdominal pain, nausea or vomiting. She still reporting weakness. Blood pressure noted to be 90/55. Patient asymptomatic with this. White blood cell count remains elevated at 26.66 (again on IV steroids). Of note: Patient has a known pressure ulcer on the right side of her buttock. Wound care following. Review of Systems Review of Systems: All systems reviewed and are unremarkable except as noted in HPI and below Denies headache, nasal congestion, sore throat, cough, chest pain, shortness of breath, abdominal pain, nausea, vomiting, dysuria, hematuria. Physical Exam Physical Exam: General: Resting comfortably in her hospital bed. She does not appear ill or toxic Neck: No JVD. Negative hepatojugular reflex Cardiac: RRR with 1/6 АННА Lungs: CTA without W/R/R Abdomen: Normoactive X4. Soft and nontender in all quadrants. No CVA tenderness Extremities: Some movement of the bilateral lower extremities. Patient able to move her legs but unable to lift them from the bed. Neuro: A&O X4 cranial nerves II through XII are grossly intact no focal neuro deficits Skin: Does have a stage I decubitus ulcer (approximately the size of a 50 cent piece) on the right buttock with mild surrounding erythema. Wound shows no active drainage. Multiple scattered lesions in the lumbar/sacral region- di fferent sizes-- (largest 1cm) that involves the right and left side (do cross the midline) Results & Data Results & Data ([facility]) Vital Signs (Past 12 Hours) Vital Signs Temp Pulse Pulse Resp BP Pulse Ox 10/23/20 11:43 36.7 C 84 20 90/55 L 96 10/23/20 07:21 37.2 C 96 H 20 93/57 L 96 10/23/20 07:00 95 H 10/23/20 04:36 37.8 C H 10/23/20 03:05 38.4 C H 118 H 15 113/63 94 Laboratory Results 10/23/20 06:36 10/23/20 06:36 Urinalysis grossly infected: Cloudy, positive nitrite, 2+ leukocytes. Covid PCR: Negative Diagnostic Findings CXR: No acute pathology CT of the abdomen pelvis: Dependent groundglass opacities likely consistent with atelectasis. Decubitus ulcer seen without abscess. Mucocele of the appendix for which a 1 to 2-month follow-up will be needed PG Care Time/CCT Total # of Minutes Spent Total Time Spent with Patient: Total time spent is greater than 50% in coordination of care (as documented) at patient's floor/unit and/or counseling patient: C[place] [address] Subseq Hosp Care Lvl 2 Patient Type Established Medical Decision Making Moderate Complexity Diagnoses Multiple sclerosis G35 Trigeminal neuralgia G50.0 Sacral decubitus ulcer L89.159 Weakness R53.1
[2020-10-24] MEDS: SODIUM CHLORIDE 0.9% 1000ML 1,000 ML IV SCH ×2 (06:40→17:06)
[2020-10-24 07:22] LABS: Hematocrit (blood only) 29.9 % (37-47); Mean Corpuscular Hemoglobin 31.4 pg (25-34); Mean Corpuscular Hgb Conc 33.4 g/dL (32-36); Mean Platelet Volume 10.1 fL (7.4-10.4); Platelet Count 344 K/uL (130-400); Red Blood Count 3.18 M/uL (4.2-5.4); White Blood Count 25.72 K/uL (4.8-10.8)
[2020-10-24 07:45] LABS: Immature Granulocytes # (auto) 0.12 K/uL (0.00-0.02); Immature Granulocytes % (auto) 0.5 %; Lymphocytes # (auto) 0.58 K/uL (1.2-3.4); Lymphocytes % (auto) 2.3 %; Monocytes # (auto) 1.49 K/uL (0.11-0.59); Monocytes % (auto) 5.8 %; Neutrophils # (auto) 23.53 K/uL (1.4-6.5); Neutrophils % (auto) 91.4 %
[2020-10-24 07:59] LABS: Albumin Level 1.8 gm/dl (3.4-5.0); BUN Creatinine Ratio 42.2 (10-20); Creatinine Clr Calc Pharmacy 128.7 ml/min; Est GFR (African American) 123.9 ml/min; Est GFR (Non-African American) 106.9 ml/min; Magnesium 2.2 mg/dl (1.8-2.4); Potassium 3.5 mmol/L (3.5-5.1)
[2020-10-24] MEDS: OXYBUTYNIN CHLORIDE XL 5 MG TABCR PO SCH (07:59)
[2020-10-24] MEDS: OXcarbazepine 150 MG TABLET PO SCH ×2 (07:59→20:59)
[2020-10-24 08:04] LABS: Albumin Globulin Ratio 0.5 (0.9-2); Bilirubin,Total 0.2 mg/dl (0.2-1); Globulin 3.7 gm/dl (2.5-4.0); Total Protein 5.5 gm/dl (6.4-8.2)
--- NOTE | 2020-10-24 10:04 | Neurology Progress Note ---
Date of Service October 24, 2020 Assessment & Plan (1) Multiple sclerosis: Plan: No further treatment recommendations for this patient's multiple sclerosis in the context of her current hospitalization. Current of early sepsis/UTI/decubitus ulcer per hospitalist service. Patient may follow-up with Dr. Lloyd in the outpatient clinic for ongoing management of her MS. Admission and Anticipated Discharge Date Admission Date: October 22, 2020 Subjective Follow-up for multiple sclerosis Patient reports feeling considerably improved this morning, able to make transfers on her own. Reports that her strength is improved. Sitting up in bedside chair, eating breakfast, no specific complaints at this time. I discussed patient's case further with Dr. Lloyd and Dr. Abdi yesterday. Given her active infection, sepsis secondary to UTI and decubitus ulcer we elected not to continue with IV corticosteroids as her presentation is most likely not due to a true MS relapse. Patient is comfortable with this plan. Again, she is feeling improved this morning with medical treatment. We have elected to hold off on additional MRIs at this point in time as well. Please see my initial consultation for further details regarding her secondary progressive MS and current treatment. Results & Data ([facility]) Vital Signs (Past 12 Hours) Vital Signs Temp Pulse Pulse Resp BP Pulse Ox 10/24/20 07:46 84 10/24/20 07:44 63 10/24/20 07:20 36.7 C 96 H 18 121/70 94 10/24/20 03:31 36.8 C 88 16 112/56 L 94 10/24/20 01:20 93 H 10/23/20 23:05 36.9 C 91 H 16 111/63 95 Coding Level of Care Code None Diagnoses Multiple sclerosis G35
--- NOTE | 2020-10-24 15:07 | Hospitalist Progress Note ---
Date of Service October 24, 2020 Assessment & Plan (1) Weakness: Plan: - Weakness likely multifactorial. Patient with initial presentation of tachycardia and a feverlikely consistent with infectious process. Her white blood cell count was 28.82; however, this is skewed given her steroid therapy prior to presentation. - Urine is grossly infected. Likely responsible for her ongoing weakness. - Patient has been started on Rocephin empirically. We will continue this for now. Final antibiotic therapy will be tailored based on culture data. Wound culture/blood cultures pending - Urine cx with Gram(-) bacteria, but no spc or sensitivities yet. - Improving today off steroids. I do think this represents more infection than MS. (2) Multiple sclerosis: Plan: -See above -PT/OT/ST consultedappreciate recommendations (3) Trigeminal neuralgia: Plan: -Continue Trileptal and gabapentin as prior to hospitalization (4) Sacral decubitus ulcer: Plan: -I agree with admitting physician that superficially, this does not appear to be actively infected. Reviewed pictures as well from services manager. -Wound nurse on boardappreciate recommendations - Conservative care at this time. Admission and Anticipated Discharge Date Admission Date: October 22, 2020 Subjective Doing well today. Feels she is getting strong with better ability to pivot. Reports no fevers/chills, chest pain, shortness of breath, abdominal pain, nausea, or vomiting. Physical Exam Constitutional: WD/WN, vitals as above Eyes: EOM intact bilaterally; no conjunctival abnormality ENMT: external ear and nose normal, oropharynx normal Neck: trachea midline, no thyromegaly normal visual inspection Respiratory: normal respiratory effort, lungs clear to auscultation no respiratory distress Cardiovascular: RRR, no murmur, no edema Gastrointestinal (Abdomen): Inspection/Auscultation: abdomen normal to inspection; abdomen not distended Musculoskeletal: no cyanosis or clubbing, extremities motor strength 5/5 Skin: no rashes, warm and dry Neurologic: moves all extremities and awake Psychiatric: Orientation: alert, oriented to person and cooperative Results & Data Results & Data ([facility]) Vital Signs (Past 12 Hours) Vital Signs Temp Pulse Pulse Resp BP BP Pulse Ox 10/24/20 11:15 36.4 C L 83 20 118/67 97 10/24/20 07:46 84 08/06/21 07:44 63 10/24/20 07:20 36.7 C 96 H 18 121/70 94 10/24/20 03:31 36.8 C 88 16 112/56 L 94 PG Care Time/CCT Total # of Minutes Spent Total Time Spent with Patient: Total time spent is greater than 50% in coordination of care (as documented) at patient's floor/unit and/or counseling patient: Coding Level of Care Code 03084 Subseq Hosp Care Lvl 2 Diagnoses Weakness R53.1 Multiple sclerosis G35 Trigeminal neuralgia G50.0 Sacral decubitus ulcer L89.159
--- NOTE | 2020-10-24 17:32 | Electrocardiogram Report ---
Test Reason : Blood Pressure : / mmHG Vent. Rate : 108 BPM Atrial Rate : 108 BPM P-R Int : 132 ms QRS Dur : 080 ms QT Int : 328 ms P-R-T Axes : 062 -09 031 degrees QTc Int : 439 ms Poor data quality, interpretation may be adversely affected Sinus tachycardia Possible Left atrial enlargement Borderline ECG No previous ECGs available Confirmed by Tavares Tomas ([id number]) on 10/24/2020 5:31:57 PM Referred By: Confirmed By:Tavares Tomas
[2020-10-24] MEDS: cefTRIAXone SODIUM 1,000 MG in DEXTROSE 5% 50 ML IV SCH (20:58)
[2020-10-24] MEDS: ENOXAPARIN INJ 40 MG/0.4 ML SYR SQ SCH (20:59)
[2020-10-25 07:06] LABS: Albumin Level 2.3 gm/dl (3.4-5.0); BUN Creatinine Ratio 36.8 (10-20); Calcium 8.5 mg/dl (8.5-10.1); Creatinine Clr Calc Pharmacy 134.1 ml/min; Est GFR (Non-African American) 108.7 ml/min; Magnesium 1.5 mg/dl (1.8-2.4); Potassium 3.3 mmol/L (3.5-5.1)
[2020-10-25 07:09] LABS: Albumin Globulin Ratio 0.6 (0.9-2); Bilirubin,Total 0.5 mg/dl (0.2-1); Globulin 4.1 gm/dl (2.5-4.0); Total Protein 6.4 gm/dl (6.4-8.2)
[2020-10-25 07:24] LABS: Hematocrit (blood only) 38.2 % (37-47); Hemoglobin 13.2 g/dL (12.0-16.0); Mean Corpuscular Hemoglobin 32.1 pg (25-34); Mean Corpuscular Hgb Conc 34.6 g/dL (32-36); Mean Corpuscular Volume 92.9 fL (80-100); Mean Platelet Volume 10.1 fL (7.4-10.4); Platelet Count 467 K/uL (130-400); RDW Coefficient of Variation 12.8 % (11.5-14.5); RDW Standard Deviation 43.9 fL (36.4-46.3); Red Blood Count 4.11 M/uL (4.2-5.4); White Blood Count 23.55 K/uL (4.8-10.8)
[2020-10-25] MEDS ORDERED: POTASSIUM CHLORIDE CRTAB 20 MEQ TABCR PO STA (07:52)
[2020-10-25] MEDS ORDERED: MAGNESIUM SULFATE / D5W 1 GM/100 ML BAG IV ONE (08:15)
[2020-10-25] MEDS: OXcarbazepine 150 MG TABLET PO SCH (08:58)
[2020-10-25] MEDS: OXYBUTYNIN CHLORIDE XL 5 MG TABCR PO SCH (08:59)
[2020-10-25] MEDS ORDERED: CHOLECALCIFEROL 1,000 UNITS 25 MCG TAB PO SCH (09:00)
--- NOTE | 2020-10-25 18:23 | Discharge Summary ---
Date of Service October 25, 2020 Admission HPI Per Admitting Provider This is a 65-year-old female with past medical history of advanced MS and trigeminal neuralgia that presents with generalized weakness. Patient is currently by her and daughter. All are good historians. The patient does seem to be a little bit confused. The tells me that they tend to travel between [place] and this area for the [place]. They have noted that over the past 6 weeks while living in this area that the patient's condition has had a significant decline. They did attribute this partially to a flare of her left-sided trigeminal neuralgia although this is completely resolved unexpectedly over the past 2 days. They noticed that she has become slightly more confused. She is much more weak and is no longer able to transfer from her wheelchair to the toilet nor she able to care for self. She does have some mild tremor and difficulty holding utensils and feeding herself. She has had diminished p.o. intake. She has not had any fever or chills nor she has had any nausea, diarrhea, vomiting, constipation. They also concerned about her sacral area which is developed some skin breakdown and surrounding erythema. They are concerned that this may be infected. There at the point that the they feel that they can no longer care for the patient independently and may require some nursing help at home versus possible placement at some point. Over the past 2 days, the has started the patient on oral steroids which has helped her MS flares in the past. They have been using prednisone 60mg daily. Patient herself does not seem to be in any significant distress but she does seem to be confused and has difficulty answering questions correctly. She does not appear to be in any cardiopulmonary distress. Principal Diagnosis Working diagnoses: 1. Weaknesslikely secondary to urinary tract infection 2. UTICitrobacter with trimble sensitivity 3. Leukocytosislikely steroid-induced 4. Hypomagnesemiareplaced 5. Hypokalemiareplaced 6. Urinary retentionneurogenic bladder from MS. Post void residual 350 cc Discharge Exam General: Resting comfortably in her hospital bed. She does not appear ill or toxic Neck: No JVD. Negative hepatojugular reflex Cardiac: RRR with 1/6 АННА Lungs: CTA without W/R/R Abdomen: Normoactive X4. Soft and nontender in all quadrants. No CVA tenderness Extremities: Some movement of the bilateral lower extremities. Patient able to move her legs but unable to lift them from the bed. Neuro: A&O X4 cranial nerves II through XII are grossly intact no focal neuro deficits Skin: Does have a stage I decubitus ulcer (approximately the size of a 50 cent piece) on the right buttock with mild surrounding erythema. Wound shows no active drainage. Multiple scattered lesions in the lumbar/sacral region- different sizes-- (largest 1cm) that involves the right and left side (do cross the midline) Discharge Data Allergies Allergy/AdvReac Type Severity Reaction Status Date / Time No Known Allergies Allergy Mild Verified 08/19/20 12:30 Consultations 10/22/20 17:30 ED Decision to Admit Stat 10/22/20 22:40 Consult Neurology Routine Plan: No further treatment recommendations for this patient's multiple sclerosis in the context of her current hospitalization. Current of early sepsis/UTI/decubitus ulcer per hospitalist service. Patient may follow-up with Dr. Lloyd in the outpatient clinic for ongoing management of her MS. Ordered Studies 10/22/20 18:50 CT Abd and Pelvis [CT abd pelvis IV con only] Routine IMPRESSION: 1. Moderate cellulitis with sacral decubitus ulcer. No abscess or evidence of osteomyelitis. 2. No bowel obstruction or bowel wall thickening. 3. Dependent bibasilar opacities favor atelectasis. Pneumonia or aspiration pneumonitis considered less likely. 4. 1.3 cm fluid-filled noninflamed structure adjacent to the cecum is suspicious for a possible mucocele of the appendix. This could be confirmed with a nonemerg ent follow-up CT of the abdomen and pelvis with IV and oral contrast in 1-2 months Hospital Course (1) Weakness: - Weakness likely related to UTI. ? MS progression can not be ruled out. - Patient with initial presentation of tachycardia and a feverlikely consistent with infectious process. Her white blood cell count was 28.82; however, this is skewed given her steroid therapy prior to presentation (which was continued in the ED and upon admission) - Urine grossly infected (culture showing Citrobacter with trimble sensitivity) - Patient was empirically started on Rocephin empirically. -With empiric IV antibiotic therapy, patient showed significant favorable response in terms of her weakness. She defervesced and remained hemodynamically stable -Her white blood cell count remain elevated but did downtrend (thought to be steroid-induced) -Did initially have some urinary retention that required straight cathing. This improved with IV antibiotic therapy -A post void residual was done on the day of discharge showing patient voided over 700 cc and retained 300. This is likely baseline as she does have a known neurogenic bladder. Ditropan was held initially as she was moderately hypotensive -Lengthy discussion with whose wanting patient at home as he is able to help with her care. Patient is able to transfer to and from the bedside commode/chair which is her baseline -At this time, will discharge home with continued antibiotic therapy (2) Electrolyte abnormality: Magnesium and potassium slightly low. Will supplement with oral potassium now and an IV mag rider with followed up magnesium supplementation X 10 days (3) Multiple sclerosis: -Although progressive MS cannot be ruled out, her acute weakness seems to be related to a urinary tract infection -Initially was thought to treat with IV steroids; however, in the setting of early sepsis syndrome, this was avoided. She did have multiple doses of IV steroids upfront which is likely contributing to her continued leukocytosis. -Should follow-up with her established neurologist (4) Trigeminal neuralgia: -Continue Trileptal and gabapentin as prior to hospitalization (5) Sacral decubitus ulcer: -I agree with admitting physician that superficially, this does not appear to be actively infected. Reviewed pictures as well from lead installer. -Wound nurse on boardappreciate recommendations - Conservative care at this time. Home Health Attestation I certify that this patient is under my care and that I, or a physicians library circulation assistant working with me, had a face to-face encounter that meets the home health [id number] encounter requirements with this patient. The encounter with the patient was in whole, or in part, for the following medical condition, which is the primary reason for home health care (list medical condition): I certify that, based on my findings, the following services are medically necessary home health services: My clinical findings support the need for the above services because: Caregiver Instruct Med Mgmt, Safety, Disease Process, Signs to Report Home Safety Assessment OT Assess ADL Status and Restore Function w ADLs PT Assessment for Endurance / Balance / Strength PT Eval for Safety and Mobility Skilled Nsg Assessment Skilled Nsg Assess Pt Illness, Disease and Sx Monitoring S/S to Report to Provider Vital Signs Further, I certify that my clinical findings support that this patient is homebo und (i.e. absences from home require considerable and taxing effort and are for medical reasons or uatsdin services or infrequently or of short duration when for other reasons) because: Chair Bound; Requires Transfer Assist Transportation Assistance/Unable to Leave Home Unassisted Certification for Home Health Services: Based on the above findings, I certify that this patient is confined to the home and needs intermittent long-term care, physical therapy and/or speech therapy or continues to need occupational therapy. The patient is under my care, and I have initiated the establishment of the plan of care. This patient will be followed by a physician who will periodically review the plan of care. Total Time Total Time Spent Total Time Spent (In Minutes): 60 minutes including time spent with patient and calling twice Discharge Plan Discharge Items Patient Disposition: Home - Home Health Services Reason For Visit: MS FLARE Discharge Diagnosis: 1. Weakness- likely related to UTI 2. Urinary Tract infection 3. Leukocytosis (elevated white blood cell count)-- likely due to steroids given 4. Hypokalemia- replaced 5. Hypomagnesemia- replaced 6. Multiple Sclerosis 7. Neurogenic Bladder 8. Hypertension Condition on Discharge: Good Activity: Resume your previous activity Non-emergency contact: Primary Care Provider and Neurologist Call non-emergency contact if: you have any medication questions, your symptoms worsen and you have a fever Follow-up/Referrals: Reji Brar MD [Primary Care Provider] - Diet: Heart Healthy Addtl Attending Provider Instructions: - complete full course of antibiotic therapy for urinary tract infection (Cipro 500mg twice a day until gone)-- next dose due tonight - note the addition of Magnesium to take daily for 10 days. Recommend PCP FU with Mag level in 1 month to determine if assisted supplementation needed - Follow up with your PCP: 7-10 days - return to the ED for new or worsening symptoms - follow up with your established Neurologist Pending Studies at Discharge: No Stand-Alone Forms: My [facility] Medications and DC Order Prescriptions: New ciprofloxacin HCl 500 mg tablet 500 mg PO BID Qty: 11 RF: 0 magnesium oxide 500 mg capsule 500 mg PO DAILY Qty: 10 RF: 0 Continued Ocrevus 30 mg/mL solution 600 mg IV .COMPLEX Qty: 20 RF: 1 oxcarbazepine 300 mg tablet 600 mg PO BID RF: 0 gabapentin 300 mg capsule 300 mg PO .COMPLEX Qty: 60 RF: 0 alendronate [Fosamax] 70 mg tablet 70 mg PO Q7D RF: 0 cholecalciferol (vitamin D3) 125 mcg (5,000 unit) capsule 125 mcg PO DAILY RF: 0 meloxicam 15 mg tablet 15 mg PO DAILY RF: 0 oxybutynin chloride 10 mg tablet extended release 24hr 10 mg PO DAILY RF: 0 multivitamin [Multiple Vitamins] Tablet 1 tab PO DAILY RF: 0 baclofen 10 mg tablet 10 mg PO BID PRN (Reason: muscle spasm) Qty: 180 RF: 3 Discontinued prednisone 10 mg tablet 0 mg PO UD RF: 0 Discharge Orders: Discharge Order (Routine); Ordered 10/25/20 Ordered By: Sumi Puentes/Other Patient Handouts: Urinary Tract Infections in Women Admission Data Admit Date/Time: 10/22/20 18:17 Attending Provider: Black Lambert Admit Provider: Gennaro Estrella Primary Care Provider: Reji Brar Other Providers: Ignacio Abdi ; [facility] ; Gennaro Estrella ; Sotero Lloyd Other Interventions: Discharge Summary Assessment (RN) Last Done: 10/25/20 15:31 Supervising Physician Co-Signing Physician Notes Patient seen and examined on the day of discharge. I agree with the discharge summary by Sumi RIVERA. I have reviewed the chart including labs, imaging and plans for discharge. patient feeling better overall, she certainly feels ready to go home eating well, no fever reviewed culture, shows Citrobacter appreciate notes from neurology, this is not MS flare - Generalized weakness due to UTI, Citrobacter covered with Rocephin while inpatient finish a course of Cipro on discharge Coding Level of Care Code Established Pt D/C DAY MANAGEMENT >30 MINS Patient Type Established Diagnoses Weakness R53.1 Multiple sclerosis G35 Trigeminal neuralgia G50.0 Sacral decubitus ulcer L89.159 Electrolyte abnormality E87.8 Time Spent (min) 60
--- NOTE | 2020-11-03 08:59 | Coding Query ---
CODING QUERY To promote full compliance with coding requirements relating to patient care, provider participation is requested in all cases of soil checker uncertainty. Please assist us with the question(s) below: Coding Question(s): Per documentation on progress note from 10/23, patient with Sepsis, POA, secondary to UTI. Discharge Summary states Sepsis Syndrome. Patient had inial presentation of tachycardia and fever-likely consistent with infectious process. Please clarify below: ( ) Sepsis (or possible Sepsis) (x ) Sepsis Ruled Out ( ) Other Please Explain: Thank you Pieter Cohen Principal Diagnosis: "that condition established after study, to be chiefly responsible for occasioning the admission of the patient to the hospital for care." Co-Existing Principal Diagnosis: "when two or more diagnoses equally meet the criteria for principal diagnosis as determined by the circumstances of admission, diagnostic work up, and/or therapy provided, and the Alphabetic Index, Tabular List, or another coding guideline does not provide sequencing direction, any one of the diagnoses may be sequenced first." "When the physician has documented what appears to be a current diagnosis in the body of the record, but has not included the diagnosis in the final diagnostic statement, the physician should be asked whether the diagnosis should be added." (Source Coding Clinic 2 QTR90. p3-4) MAXIMO
== END 2020-10-25 17:03 | disposition home health service (06) | DRG 690 ==
LOC: ED 14:42 → SUATTDRO 18:17 → 2W 18:17
DX: L89.311 Pressure ulcer of right buttock, stage 1; B96.89 Other specified bacterial agents as the cause of diseases classified elsewhere; M47.816 Spondylosis without myelopathy or radiculopathy, lumbar region; T38.0X5A Adverse effect of glucocorticoids and synthetic analogues, initial encounter; E83.42 Hypomagnesemia; G35 Multiple sclerosis; Z79.899 Other long term (current) drug therapy; I10 Essential (primary) hypertension; E55.9 Vitamin D deficiency, unspecified; L89.159 Pressure ulcer of sacral region, unspecified stage; D72.829 Elevated white blood cell count, unspecified; G50.0 Trigeminal neuralgia; N39.0 Urinary tract infection, site not specified; E87.6 Hypokalemia; N31.9 Neuromuscular dysfunction of bladder, unspecified